=== PATIENT | male | born 1980 | race Hispanic/Latino ===

== ENCOUNTER 2017-05-26 09:53 | Emergency (ER) | payer SELFPAY ==
[~2017-05-26] VITALS: Ht 172.7 cm; Wt 65.0 kg
[~2017-05-26 09:53] MED LIST: AMOXICILLIN500 MG PO; BACTRIM DS1 TAB PO; TRAMADOL HCL50 MG PO; ULTRAM50 M1 PO; ULTRAM50 MG PO
[2017-05-26] MEDS ORDERED: ZPAK PO (10:39)
[2017-05-26 10:40] LABS: INFLUENZA A NONE DETECTED (NONE DETECT); INFLUENZA B NONE DETECTED (NONE DETECT)
[2017-05-26 10:49] VITALS: BP 135/77
== END 2017-05-26 10:53 | disposition home or self-care (01) | DRG 153 ==
LOC: ED 09:53
PROVIDERS: Family Medicine
DX: J06.9 Acute upper respiratory infection, unspecified (principal); F17.210 Nicotine dependence, cigarettes, uncomplicated; R05 Cough

== ENCOUNTER 2017-05-28 21:38 | Emergency (ER) | payer SELFPAY ==
[~2017-05-28] VITALS: Ht 172.7 cm; Wt 64.6 kg
[~2017-05-28 21:38] MED LIST changes: +ZPAK PO
[2017-05-28 21:48] VITALS: BP 131/93
== END 2017-05-28 22:07 | disposition left against medical advice (07) | DRG 951 ==
LOC: ED 21:38
DX: Z91.19 Patient's noncompliance with other medical treatment and regimen (principal)

== ENCOUNTER 2018-01-30 17:37 | Emergency (ER) | payer SELFPAY ==
[~2018-01-30] VITALS: Ht 172.7 cm; Wt 65.0 kg
[2018-01-30 17:46] VITALS: BP 124/84
== END 2018-01-30 18:45 | disposition left against medical advice (07) | DRG 951 ==
LOC: ED 17:37 → LWOBS 18:45
DX: Z91.19 Patient's noncompliance with other medical treatment and regimen (principal)

== ENCOUNTER 2018-12-26 01:27 | Emergency (ER) | payer SELFPAY ==
[~2018-12-26] VITALS: Ht 172.7 cm; Wt 70.0 kg
[2018-12-26] MEDS ORDERED: KEFLEX500 MG PO (02:08)
[2018-12-26] MEDS ORDERED: PERCOCET 5/325M1 TAB PO (02:08)
[2018-12-26 03:04] VITALS: BP 135/87
== END 2018-12-26 03:04 | disposition home or self-care (01) | DRG 603 ==
LOC: ED 01:27
DX: L02.421 Furuncle of right axilla (principal); F17.210 Nicotine dependence, cigarettes, uncomplicated

== ENCOUNTER 2020-05-16 18:40 | Emergency (ER) | payer BC ==
[~2020-05-16] VITALS: Ht 20.3 cm; Wt 67.0 kg
[~2020-05-16 18:40] MED LIST changes: +KEFLEX500 MG PO; +PERCOCET 5/325M1 TAB PO
[2020-05-16 20:57] VITALS: BP 118/70
== END 2020-05-16 21:05 | disposition home or self-care (01) | DRG 179 ==
LOC: ED 18:40
DX: U07.1 COVID-19 (principal); R43.8 Other disturbances of smell and taste; R52 Pain, unspecified; F17.210 Nicotine dependence, cigarettes, uncomplicated

== ENCOUNTER 2021-10-11 10:04 | Emergency (ER) | payer OTHER ==
[~2021-10-11] VITALS: Ht 175.3 cm; Wt 65.9 kg
[2021-10-11 10:13] VITALS: BP 120/80
[2021-10-11] MEDS ORDERED: SUBOXONE1 MI1 SL (10:21)
[2021-10-11] MEDS ORDERED: MUPIROCIN21 TOP (10:32)
[2021-10-11] MEDS ORDERED: CEPHALEXIN500 M1 PO (10:32)
== END 2021-10-11 12:17 | disposition home or self-care (01) ==
LOC: ED
DX: S61.012A Laceration without foreign body of left thumb without damage to nail, initial encounter (principal); F17.210 Nicotine dependence, cigarettes, uncomplicated; W27.0XXA Contact with workbench tool, initial encounter; Y92.009 Unspecified place in unspecified non-institutional (private) residence as the place of occurrence of the external cause

== ENCOUNTER 2022-01-31 22:32 | Emergency (ER) | payer OTHER ==
[~2022-01-31] VITALS: Ht 175.3 cm; Wt 65.9 kg
[~2022-01-31 22:32] MED LIST changes: +CEPHALEXIN500 M1 PO; +MUPIROCIN21 TOP; +SUBOXONE1 MI1 SL
[2022-01-31 22:48] VITALS: BP 125/88
[2022-01-31 23:00] VITALS: BP 128/91
[2022-01-31] MEDS ORDERED: SILVADENE1 % EX (23:10)
[2022-01-31 23:15] VITALS: BP 118/84
== END 2022-01-31 23:25 | disposition home or self-care (01) ==
LOC: ED 22:32
DX: T22.212A Burn of second degree of left forearm, initial encounter (principal); F11.10 Opioid abuse, uncomplicated; F17.200 Nicotine dependence, unspecified, uncomplicated; X19.XXXA Contact with other heat and hot substances, initial encounter; Y93.89 Activity, other specified

== ENCOUNTER 2022-04-18 00:10 | Emergency (ER) | payer OTHER ==
[~2022-04-18] VITALS: Ht 175.3 cm; Wt 63.0 kg
[~2022-04-18 00:10] MED LIST changes: +SILVADENE1 % EX
[2022-04-18 01:55] VITALS: BP 119/84
== END 2022-04-18 01:55 | disposition home or self-care (01) ==
LOC: ED 00:10
DX: S63.502A Unspecified sprain of left wrist, initial encounter (principal); F17.200 Nicotine dependence, unspecified, uncomplicated; X50.0XXA Overexertion from strenuous movement or load, initial encounter; Y93.H3 Activity, building and construction; Y92.009 Unspecified place in unspecified non-institutional (private) residence as the place of occurrence of the external cause

== ENCOUNTER 2024-03-31 14:33 | Emergency (ER) | payer OTHER, MEDICAID ==
[~2024-03-31] VITALS: Ht 175.3 cm; Wt 69.0 kg
[~2024-03-31 14:33] MED LIST changes: +PREDNISONE50 MG PO
[2024-03-31 14:49] VITALS: BP 120/81
== END 2024-03-31 15:07 | disposition left against medical advice (07) | DRG 951 ==
LOC: ED 14:33 → LWOBS 15:07
DX: Z53.21 Procedure and treatment not carried out due to patient leaving prior to being seen by health care provider (principal)